=== PATIENT | female | born 1955 | race Caucasian/White ===

== ENCOUNTER 2020-07-03 10:52 | Outpatient (CLI) | payer MEDICARE, OTHER | END 2020-07-03 10:53 | disposition home or self-care (01) | LOC: CSHULT 10:52 | PROVIDERS: ATTEND Internal Medicine Gastroenterology | DX: B18.2 Chronic viral hepatitis C (principal); K21.9 Gastro-esophageal reflux disease without esophagitis; Z90.49 Acquired absence of other specified parts of digestive tract; N13.30 Unspecified hydronephrosis | CPT/HCPCS: 76705 ==